=== PATIENT | male | born 1985 | race Caucasian/White ===

== ENCOUNTER 2017-09-18 07:09 | Inpatient (IN) ==
[2017-09-18] MEDS ORDERED: Acetylcysteine 20% Oral Liq 6,000 MG/30 ML Vial PO ONE (08:06)
--- NOTE | 2017-09-18 08:12 | ED ---
HPI General Chief Complaint: Overdose Stated Complaint: Poss overdose Time Seen by Provider: 09/18/17 07:56 History of Present Illness HPI Narrative: This patient has been feeling depressed and suicidal primarily over a relationship breakup. Last night in an intentional overdose took 30 500 mg Tylenol at midnight. He denies illicit drug use or alcohol or any other pill ingestion. He presents here voluntarily seeking help. His only physical complaint is nausea at this time. Denies abdominal pain or fever. Symptom severity is moderate. No alleviating factors. No exacerbating factors. Duration is 8 hours Related Data Home Medications Medication Instructions Recorded Confirmed No Known Home Medications 09/18/17 09/18/17 Allergies Allergy/AdvReac Type Severity Reaction Status Date / Time No Known Allergies Allergy Unverified 09/18/17 07:12 Review of Systems Except as stated in HPI: all other systems reviewed are negative PMFSH Social History Social History Substance History: No History of Abuse Second Hand Smoke Exposure: No Smoking Status: Never smoker How Often Do You Have a Drink Containing Alcohol: Monthly or less Recent Travel in [facility] within the Last 8 Weeks: No Recent Out of Country Travel within the Last 8 Weeks: No Immunization History Tetanus Immunization: Unsure Hx Influenza Vaccine This Season: No Exam Narrative Exam Narrative: GENERAL: Well-nourished, well-developed patient in no apparent distress. SKIN: Focused skin assessment reveals no rash and nodules. Skin is Warm and dry. HEAD: Atraumatic. Normocephalic. EYES: Pupils equal and round. No scleral icterus. No injection or drainage. ENT: No nasal bleeding or discharge. Mucous membranes pink and moist. NECK: Trachea midline. No JVD. CARDIOVASCULAR: Regular rate and rhythm. No murmur appreciated. RESPIRATORY: No accessory muscle use. Clear to auscultation. Breath sounds equal bilaterally. GASTROINTESTINAL: Abdomen soft, non-tender, nondistended. Hepatic and splenic margins not palpable. MUSCULOSKELETAL: No obvious deformities. No clubbing. No cyanosis. No edema. NEUROLOGICAL: Awake and alert. No obvious cranial nerve deficits. Motor grossly within normal limits. Normal speech. PSYCHIATRIC: Depressed mood and flat affect; insight and judgment poor . Course Initial Documented Vital Signs Temperature 97.8 F 09/18/17 07:12 Pulse Rate 77 09/18/17 07:12 Respiratory Rate 16 09/18/17 07:12 Blood Pressure 138/79 09/18/17 07:12 Last Documented Vital Signs Temperature 97.8 F 09/18/17 07:12 Pulse Rate 87 09/18/17 08:14 Respiratory Rate 18 09/18/17 08:14 Blood Pressure 121/76 09/18/17 08:14 Pulse Oximetry 99 09/18/17 08:14 Medical Decision Making MDM Narrative Medical decision making narrative: IV placed and labs sent The nurse spoke with poison control who recommended an immediate dose of Mucomyst, even before lab studies are complete given the amount that he took. I gave him a oral loading dose. Zofran given as well. I ordered psychiatric evaluation and he is agreeable. CBC is normal. Metabolic studies reasonably normal. His Tylenol level is 94. Plotted on the graft at the 8 hour vince he meets criteria for the full treatment of Acetadote. I gave him the first as an oral load. He is now nauseous so I am instituting IV treatment per protocol. I have reviewed with medical residents who will admit. He will get psychiatric consultation as an inpatient. Differential Diagnosis Differential Diagnosis: Overdose, suicidal ideation, adjustment disorder Medical Records Medical records reviewed: Yes I reviewed the patient's medical records. Lab Data Result diagrams: 09/18/17 08:00 09/18/17 08:00 Lab Results 09/18/17 09/18/17 09/18/17 Range/Units 08:00 08:00 08:00 WBC 10.6 (4.0-11.0) th/mm3 RBC 5.08 (4.50-5.90) mil/mm3 Hgb 15.0 (13.0-17.0) gm/dL Hct 43.7 (39.0-51.0) % MCV 86.0 (80.0-100.0) fL MCH 29.5 (27.0-34.0) pg MCHC 34.3 (32.0-36.0) % RDW 13.8 (11.6-17.2) % Plt Count 251 (150-450) th/mm3 MPV 8.1 (7.0-11.0) fL Neut % (Auto) 87.5 H (16.0-70.0) % Lymph % (Auto) 8.4 L (9.0-44.0) % [place] % (Auto) 3.9 (0.0-8.0) % Eos % (Auto) 0.0 (0.0-4.0) % Baso % (Auto) 0.2 (0.0-2.0) % Neut # (Auto) 9.3 H (1.8-7.7) th/mm3 Lymph # (Auto) 0.9 L (1.0-4.8) th/mm3 [place] # (Auto) 0.4 (0.0-0.9) th/mm3 Eos # (Auto) 0.0 (0.0-0.4) th/mm3 Baso # (Auto) 0.0 (0.0-0.2) th/mm3 WBC Differential . Differential Comment Auto diff final Sodium 138 (136-145) meq/L Potassium 3.4 L (3.5-5.1) meq/L Chloride 104 (98-107) meq/L Carbon Dioxide 25.3 (21.0-32.0) meq/L Anion Gap 9 (5-15) meq/L BUN 10 (7-18) mg/dL Creatinine 0.98 (0.60-1.30) mg/dL Estimated GFR Greater than 89 (>89) mL/min Random Glucose 125 H (74-106) mg/dL Calcium 9.1 (8.5-10.1) mg/dL Total Bilirubin 0.4 (0.2-1.0) mg/dL AST 10 L (15-37) U/L ALT 15 (12-78) U/L Alkaline Phosphatase 54 (45-117) U/L Total Protein 8.6 H (6.4-8.2) g/dL Albumin 4.4 (3.4-5.0) g/dL Salicylates Less than 1.7 L (2.8-20.0) mg/dL Urine Opiates Screen (Neg) Acetaminophen 94.1 H (10.0-30.0) mcg/mL Ur Barbiturates Screen (Neg) Ur Amphetamines Screen (Neg) U Benzodiazepines Scrn (Neg) Urine Cocaine Screen (Neg) U Cannabinoids Screen (Neg) Serum Alcohol Less than 3 (0-5) mg/dL 09/18/17 Range/Units 08:45 WBC (4.0-11.0) th/mm3 RBC (4.50-5.90) mil/mm3 Hgb (13.0-17.0) gm/dL Hct (39.0-51.0) % MCV (80.0-100.0) fL MCH (27.0-34.0) pg MCHC (32.0-36.0) % RDW (11.6-17.2) % Plt Count (150-450) th/mm3 MPV (7.0-11.0) fL Neut % (Auto) (16.0-70.0) % Lymph % (Auto) (9.0-44.0) % [place] % (Auto) (0.0-8.0) % Eos % (Auto) (0.0-4.0) % Baso % (Auto) (0.0-2.0) % Neut # (Auto) (1.8-7.7) th/mm3 Lymph # (Auto) (1.0-4.8) th/mm3 [place] # (Auto) (0.0-0.9) th/mm3 Eos # (Auto) (0.0-0.4) th/mm3 Baso # (Auto) (0.0-0.2) th/mm3 WBC Differential Differential Comment Sodium (136-145) meq/L Potassium (3.5-5.1) meq/L Chloride (98-107) meq/L Carbon Dioxide (21.0-32.0) meq/L Anion Gap (5-15) meq/L BUN (7-18) mg/dL Creatinine (0.60-1.30) mg/dL Estimated GFR (>89) mL/min Random Glucose (74-106) mg/dL Calcium (8.5-10.1) mg/dL Total Bilirubin (0.2-1.0) mg/dL AST (15-37) U/L ALT (12-78) U/L Alkaline Phosphatase (45-117) U/L Total Protein (6.4-8.2) g/dL Albumin (3.4-5.0) g/dL Salicylates (2.8-20.0) mg/dL Urine Opiates Screen Neg (Neg) Acetaminophen (10.0-30.0) mcg/mL Ur Barbiturates Screen Neg (Neg) Ur Amphetamines Screen Neg (Neg) U Benzodiazepines Scrn Neg (Neg) Urine Cocaine Screen Neg (Neg) U Cannabinoids Screen Neg (Neg) Serum Alcohol (0-5) mg/dL Discharge Plan Discharge Disposition Patient Disposition: 32 Still Patient Discharge Details Diagnosis: Acetaminophen overdose Physicians Team ED Provider: Desean Zaidi Primary Care Provider: Primary Care Kailee Sanders Rxs /Orders / Referrals /Forms Prescriptions: No Action No Known Home Medications RF: 0 Discharge Interventions Interventions: Vital Signs Last Done: 09/18/17 08:14 Status ED Status: With Doctor
[2017-09-18 08:36] LABS: Baso % (Auto) 0.2 % (0.0-2.0); Hematocrit 43.7 % (39.0-51.0); Lymph # (Auto) 0.9 th/mm3 (1.0-4.8); Lymph % (Auto) 8.4 % (9.0-44.0); Mean Corpuscular HGB Conc 34.3 % (32.0-36.0); Mean Corpuscular Hemoglobin 29.5 pg (27.0-34.0); Mean Platelet Volume 8.1 fL (7.0-11.0); Mono # (Auto) 0.4 th/mm3 (0.0-0.9); Mono % (Auto) 3.9 % (0.0-8.0); Neut # (Auto) 9.3 th/mm3 (1.8-7.7); Neut % (Auto) 87.5 % (16.0-70.0); Platelet Count 251 th/mm3 (150-450); Red Blood Count 5.08 mil/mm3 (4.50-5.90); Red Cell Distribution Width 13.8 % (11.6-17.2); White Blood Count 10.6 th/mm3 (4.0-11.0)
[2017-09-18 08:56] LABS: Albumin 4.4 g/dL (3.4-5.0); Anion Gap 9 meq/L (5-15); Aspartate Aminotransferase 10 U/L (15-37); Blood Urea Nitrogen 10 mg/dL (7-18); Calcium 9.1 mg/dL (8.5-10.1); Carbon Dioxide 25.3 meq/L (21.0-32.0); Chloride 104 meq/L (98-107); Glomerular Filtration Rate Greater Than 89 mL/min (>89); Glucose,Random 125 mg/dL (74-106); Potassium 3.4 meq/L (3.5-5.1); Sodium 138 meq/L (136-145)
[2017-09-18 08:59] LABS: Acetaminophen 94.1 mcg/mL (10.0-30.0); Alanine Aminotransferase 15 U/L (12-78); Alkaline Phosphatase 54 U/L (45-117); Total Protein 8.6 g/dL (6.4-8.2)
[2017-09-18 09:22] LABS: Amphetamine Screen,Urine Neg (Neg); Barbiturate Screen,Urine Neg (Neg); Cannabinoid Screen,Urine Neg (Neg); Cocaine Screen,Urine Neg (Neg)
[2017-09-18 09:24] LABS: Opiate Screen,Urine Neg (Neg)
[2017-09-18] MEDS ORDERED: WATER IV.SIG ONE ×8 (11:22→12:58)
[2017-09-18] MEDS ORDERED: ACETYLCYSTEINE IV.SIG ONE ×8 (11:22→12:58)
[2017-09-18] MEDS ORDERED: DEXTROSE 5% IV.SIG ONE ×8 (11:22→12:58)
--- NOTE | 2017-09-18 12:31 | P.HPFP ---
History of Present Illness Primary Care Physician: No Primary Care Physician History of Present Illness: 32 y/o M, previously healthy with no medical history, took 30 500mg pills at 12: 00AM, attempting suicide. Hx of suicidal ideations but this is his first attempt. He recently had a bad break up and had a bad series events following that. His cat and engagement was broken up on the same day. He has also had to try to get his son taken care of. His ex now has a new BF and this has really upset him. These events occurred 1 month ago and there has been ongoing pain since then. He expects that he would never try something like this again and it was a moment of weakness. He tried drinking salt water to induce vomiting and tried to puke up some of the tylenol. He did vomit 5x at home - clear/green normal vomit color. He got medication in the ED and vomited 1 hr later. He is not currently nauseas. Denies CP/SOB/dizzyness. - Diagnosis (1) Tylenol overdose (2) Suicide attempt (3) Disorders of fluid, electrolyte, and acid-base balance (4) DVT prophylaxis Review of Systems Constitutional: Denies anorexia, Denies body ache(s) Eyes: Denies blurry vision, Denies bulging eyes Cardiovascular: Denies chest pain, Denies chest pain at rest Respiratory: Denies change in phlegm color, Denies pain on inspiration Gastrointestinal: Denies abdominal pain, Denies bright, red blood in stools Genitourinary: Denies difficulty with ejaculations, Denies erectile dysfunction Musculoskeletal: Denies abnormal walking, Denies joint pain Skin/Breast: Denies bleeding lesions Neurologic: Denies abnormal hearing Psychiatric: Denies abnormal sleep pattern Endocrine: Denies cold intolerance PMFSH - History History Provided By: Patient - Medical History Medical History: Medical History (Last Updated 09/18/17 @ 17:09 by Fina Sanchez MD, R2) Asthma - Tobacco History Second Hand Smoke Exposure: No Tobacco Use In Past 30 Days: No Smoking Status: Never smoker - Alcohol History How Often Do You Have a Drink Containing Alcohol: Monthly or less - Substance Use History Substance History: No History of Abuse - Travel History History of Recent Travel: No Recent Travel in the [place] Within the Last 8 Weeks: No Recent Travel Out of the Country Within the Last 8 Weeks: No - Immunization History Tetanus Immunization: Unsure Hx Influenza Vaccine This Season: No Medications and Allergies Active Medications: Active Medications Miscellaneous Medication ([facility] [place] [facility] Information) 0 each OTHER ONCE ONE Stop: 09/18/17 13:01 Allergies Allergy/AdvReac Type Severity Reaction Status Date / Time No Known Allergies Allergy Unverified 09/18/17 07:12 Home Medications Medication Instructions Recorded Confirmed Type No Known Home Medications 09/18/17 09/18/17 History Exam Vital signs: Vital Signs 09/18/17 07:12 09/18/17 07:14 09/18/17 08:14 Temperature 97.8 F Pulse Rate 77 79 87 Respiratory Rate 16 16 18 Blood Pressure 138/79 130/82 121/76 Pulse Oximetry 100 99 Intake & Output 09/17/17 09/18/17 09/18/17 18:59 06:59 18:59 Weight 65.771 kg - Constitutional no acute distress - Routine Respiratory Exam Present: CTA bilaterally. Absent: accessory muscle use, decreased breath sounds , respiratory distress - Routine Cardiovascular Exam Present: RRR, S1, S2 - Routine Abdominal Exam Present: soft, normoactive bowel sounds. Absent: tenderness - Routine Extremities Exam Absent: cyanosis, clubbing, edema - Routine Neurological Exam Present: alert, oriented X3 Results - Labs Result diagrams: 09/18/17 08:00 09/18/17 08:00 Abnormal lab results 09/18/17 09/18/17 09/18/17 Range/Units 08:00 08:00 08:00 Neut % (Auto) 87.5 H (16.0-70.0) % Lymph % (Auto) 8.4 L (9.0-44.0) % Neut # (Auto) 9.3 H (1.8-7.7) th/mm3 Lymph # (Auto) 0.9 L (1.0-4.8) th/mm3 Potassium 3.4 L (3.5-5.1) meq/L Random Glucose 125 H (74-106) mg/dL AST 10 L (15-37) U/L Total Protein 8.6 H (6.4-8.2) g/dL Salicylates Less than 1.7 L (2.8-20.0) mg/dL Acetaminophen 94.1 H (10.0-30.0) mcg/mL Short CBC 09/18/17 Range/Units 08:00 WBC 10.6 (4.0-11.0) th/mm3 Hgb 15.0 (13.0-17.0) gm/dL Hct 43.7 (39.0-51.0) % Plt Count 251 (150-450) th/mm3 BMP 09/18/17 08:00 Sodium 138 Potassium 3.4 L Chloride 104 Carbon Dioxide 25.3 BUN 10 Creatinine 0.98 Calcium 9.1 Liver Function 09/18/17 Range/Units 08:00 Total Bilirubin 0.4 (0.2-1.0) mg/dL AST 10 L (15-37) U/L ALT 15 (12-78) U/L Alkaline Phosphatase 54 (45-117) U/L Albumin 4.4 (3.4-5.0) g/dL Caprini VTE Risk Assessment Caprini VTE Risk Assessment: No/Low Risk (score <= 1) Caprini Risk Assessment Model: Point Value = 1 Point Value = 2 Point Value = 3 Point Value = 5 Age 41-60 Minor surgery BMI > 25 kg/m2 Swollen legs Varicose veins or History of unexplained or recurrent spontaneous Oral contraceptives or hormone replacement Sepsis (< 1 month) Serious lung disease, including pneumonia (< 1 month) Abnormal pulmonary function Acute myocardial infarction Congestive heart failure (< 1 month) History of inflammatory bowel disease Medical patient at bed rest Age 61-74 Arthroscopic surgery Major open surgery (> 45 min) Laparoscopic surgery (> 45 min) Malignancy Confined to bed (> 72 hours) Immobilizing plaster cast Central venous access Age >= 75 History of VTE Family history of VTE Factor V Leiden Prothrombin [id number] Lupus anticoagulant Anticardiolipin antibodies Elevated serum homocysteine Heparin-induced thrombocytopenia Other congenital or acquired thrombophilia Stroke (< 1 month) Elective arthroplasty Hip, pelvis, or leg fracture Acute spinal cord injury (< 1 month) Prophylaxis Regimen: Total Risk Factor Score Risk Level Prophylaxis Regimen 0-1 Low Early ambulation 2 Moderate Order ONE of the following: *Sequential Compression Device (SCD) *Heparin 5000 units SQ BID 3-4 Higher Order ONE of the following medications: *Heparin 5000 units SQ TID *Enoxaparin/Lovenox 40 mg SQ daily (WT < 150 kg, CrCl > 30 mL/min) *Enoxaparin/Lovenox 30 mg SQ daily (WT < 150 kg, CrCl > 10-29 mL/min) *Enoxaparin/Lovenox 30 mg SQ BID (WT < 150 kg, CrCl > 30 mL/min) AND/OR *Sequential Compression Device (SCD) 5 or more Highest Order ONE of the following medications: *Heparin 5000 units SQ TID (Preferred with Epidurals) *Enoxaparin/Lovenox 40 mg SQ daily (WT < 150 kg, CrCl > 30 mL/min) *Enoxaparin/Lovenox 30 mg SQ daily (WT < 150 kg, CrCl > 10-29 mL/min) *Enoxaparin/Lovenox 30 mg SQ BID (WT < 150 kg, CrCl > 30 mL/min) AND *Sequential Compression Device (SCD) Assessment and Plan - Assessment (1) Tylenol overdose Code(s): T39.1X1A - Poisoning by 4-Aminophenol derivatives, accidental ( unintentional), initial encounter Status: Acute Plan: Continue to follow acetaminophen overdose protocol Status post acetylcysteine oral 9200 mg p.o. 1, with vomiting of medication afterwards s/p N-acetylcysteine 9900 mg infusion 1 hour -first dose Continue protocol per pharmacy, start 16 hour dose Expect 300 mg/kg over 24 hours, via 20 hour protocol Follow-up vital signs (2) Suicide attempt Code(s): T14.91XA - Suicide attempt, initial encounter Status: Acute Plan: No current suicidal ideations, patient is here voluntarily Follow-up with psychiatry consult (3) Disorders of fluid, electrolyte, and acid-base balance Code(s): E87.8 - Other disorders of electrolyte and fluid balance, not elsewhere classified Status: Acute Plan: Fluids: IV fluids at maintenance, encourage p.o. fluids as tolerated Electrolytes: BMP normal, follow-up and replete as needed Nutrition: Regular diet as tolerated (4) DVT prophylaxis Status: Acute Plan: Lovenox 40 subcu daily - Assessment and Plan 32-year-old male, no previous past medical history, presents status post attempted suicide Via Tylenol overdose. Discharge Planning: Discharge pending clinical improvement, completion of acetylcysteine protocol
[2017-09-18] MEDS ORDERED: Bisacodyl 10 MG Supp RECTAL PRN (12:53)
[2017-09-18] MEDS ORDERED: [UNRECOGNIZED DRUG - REMARK] OTHER ONE (13:00)
[2017-09-18] MEDS: Sod Chloride 0.9% Inj 1,000 ML IV.CONT SCH (15:18)
[2017-09-18] MEDS: Enoxaparin Inj 40 MG/0.4 ML Syringe SQ SCH (15:18)
[2017-09-18] MEDS ORDERED: Zolpidem Tartrate 5 MG Tablet PO PRN (21:00)
--- NOTE | 2017-09-18 21:38 | ECG ---
Date Performed: 09/18/2017 Time Performed: 10:41:26 PTAGE: 32 years EKG: Sinus rhythm WITH SINUS ARRHYTHMIA POSSIBLE RIGHT VENTRICULAR CONDUCTION DELAY BORDERLINE ECG NO PREVIOUS TRACING DOCTOR: Kyrie Conde Interpretating Date/Time 09/18/2017 21:36:32
[2017-09-19] MEDS: Sod Chloride 0.9% Inj 1,000 ML IV.CONT SCH ×3 (06:20→20:08)
[2017-09-19 07:27] LABS: Baso % (Auto) 0.4 % (0.0-2.0); Eos # (Auto) 0.2 th/mm3 (0.0-0.4); Eos % (Auto) 2.6 % (0.0-4.0); Hematocrit 39.6 % (39.0-51.0); Hemoglobin 13.8 gm/dL (13.0-17.0); Lymph # (Auto) 1.8 th/mm3 (1.0-4.8); Lymph % (Auto) 30.2 % (9.0-44.0); Mean Corpuscular HGB Conc 34.8 % (32.0-36.0); Mean Corpuscular Hemoglobin 30.1 pg (27.0-34.0); Mean Corpuscular Volume 86.4 fL (80.0-100.0); Mean Platelet Volume 8.1 fL (7.0-11.0); Mono # (Auto) 0.7 th/mm3 (0.0-0.9); Mono % (Auto) 11.8 % (0.0-8.0); Neut # (Auto) 3.2 th/mm3 (1.8-7.7); Platelet Count 236 th/mm3 (150-450); Red Blood Count 4.59 mil/mm3 (4.50-5.90); Red Cell Distribution Width 14.1 % (11.6-17.2); White Blood Count 5.9 th/mm3 (4.0-11.0)
[2017-09-19 08:32] LABS: Albumin 3.5 g/dL (3.4-5.0); Anion Gap 7 meq/L (5-15); Aspartate Aminotransferase 6 U/L (15-37); Blood Urea Nitrogen 8 mg/dL (7-18); Calcium 8.6 mg/dL (8.5-10.1); Carbon Dioxide 27.4 meq/L (21.0-32.0); Chloride 108 meq/L (98-107); Glomerular Filtration Rate Greater Than 89 mL/min (>89); Glucose,Random 82 mg/dL (74-106); Potassium 3.9 meq/L (3.5-5.1); Sodium 142 meq/L (136-145)
[2017-09-19 08:34] LABS: Alanine Aminotransferase 15 U/L (12-78)
[2017-09-19 08:36] LABS: Alkaline Phosphatase 44 U/L (45-117)
--- NOTE | 2017-09-19 11:50 | P.PNFP ---
Subjective Interval history: Patient seen and examined bedside this morning. Patient denies any nausea or vomiting overnight. He has been eating and drinking without difficulty. He has been with the sitters overnight and there of the been no complications. No abdominal pain. No fever/chills. He feels comfortable with going home today and he feels that he is a safe plan for discharge. <Fina Sanchez - 09/19/17 11:49> Results - Labs Result diagrams: 09/19/17 06:35 09/19/17 06:35 <Jaspal Bentley - 09/20/17 08:25> Abnormal lab results 09/19/17 Range/Units 06:35 Chloride 108 H (98-107) meq/L AST 6 L (15-37) U/L Alkaline Phosphatase 44 L (45-117) U/L Acetaminophen Less than 2.0 L (10.0-30.0) mcg/mL [facility] 09/19/17 06:35 Sodium 142 Potassium 3.9 Chloride 108 H Carbon Dioxide 27.4 BUN 8 Creatinine 0.80 Calcium 8.6 Liver Function 09/19/17 Range/Units 06:35 Total Bilirubin 0.3 (0.2-1.0) mg/dL AST 6 L (15-37) U/L ALT 15 (12-78) U/L Alkaline Phosphatase 44 L (45-117) U/L Albumin 3.5 D (3.4-5.0) g/dL <Jaspal Bentley - 09/20/17 08:25> Abnormal lab results 09/19/17 09/19/17 Range/Units 06:35 06:35 [place] % (Auto) 11.8 H (0.0-8.0) % Chloride 108 H (98-107) meq/L AST 6 L (15-37) U/L Alkaline Phosphatase 44 L (45-117) U/L Acetaminophen Less than 2.0 L (10.0-30.0) mcg/mL Short CBC 09/19/17 Range/Units 06:35 WBC 5.9 (4.0-11.0) th/mm3 Hgb 13.8 (13.0-17.0) gm/dL Hct 39.6 (39.0-51.0) % Plt Count 236 (150-450) th/mm3 [facility] 09/19/17 06:35 Sodium 142 Potassium 3.9 Chloride 108 H Carbon Dioxide 27.4 BUN 8 Creatinine 0.80 Calcium 8.6 Liver Function 09/19/17 Range/Units 06:35 Total Bilirubin 0.3 (0.2-1.0) mg/dL AST 6 L (15-37) U/L ALT 15 (12-78) U/L Alkaline Phosphatase 44 L (45-117) U/L Albumin 3.5 D (3.4-5.0) g/dL <Fina Sanchez - 09/19/17 11:49> Physical Exam Vital signs: Vital Signs 09/19/17 12:00 09/19/17 20:00 09/20/17 00:00 Temperature 98.4 F 98 F Pulse Rate 76 87 84 Respiratory Rate 16 20 20 Blood Pressure 125/73 125/85 133/76 Pulse Oximetry 98 98 97 09/20/17 00:05 09/20/17 04:00 Temperature 97.6 F Pulse Rate 62 59 L Respiratory Rate 20 Blood Pressure 129/76 Pulse Oximetry 97 Intake & Output 09/19/17 09/20/17 09/20/17 18:59 06:59 18:59 Intake Total 1000 / 1000 2646 / 2646 Balance 1000 / 1000 2646 / 2646 Weight 65.77 kg Intake: IV 1000 / 1000 1965 NS Inj 1,000 ML @ 100 mls/hr IV 1000 / 1000 1965 .CONT .Q10H [facility] Rx#:[id number] Oral 680 / 680 Other: # Voids 4 Date of Last Bowel Movement 09/17/17 <Jaspal Bentley - 09/20/17 08:25> Vital Signs 09/18/17 12:59 09/18/17 13:00 09/18/17 15:17 Temperature Pulse Rate 65 65 63 Respiratory Rate 16 16 18 Blood Pressure 127/71 127/71 125/80 Pulse Oximetry 98 99 99 09/18/17 16:00 09/18/17 19:20 09/18/17 23:23 Temperature 99.1 F 98.6 F Pulse Rate 69 81 Respiratory Rate 16 18 17 Blood Pressure 133/76 139/86 Pulse Oximetry 98 98 09/18/17 23:54 09/19/17 00:02 09/19/17 03:25 Temperature 97.8 F 97.5 F L Pulse Rate 74 79 65 Respiratory Rate 18 18 Blood Pressure 141/66 H 127/69 Pulse Oximetry 98 97 09/19/17 04:00 09/19/17 04:03 09/19/17 07:45 Temperature Pulse Rate 62 Respiratory Rate 17 Blood Pressure Pulse Oximetry 98 09/19/17 08:00 Temperature Pulse Rate 77 Respiratory Rate Blood Pressure Pulse Oximetry Intake & Output 09/18/17 09/19/17 09/19/17 18:59 06:59 18:59 Intake Total 516.5 / 516.5 1360 / 1360 1000 / 1000 Balance 516.5 / 516.5 1360 / 1360 1000 / 1000 Weight 65.77 kg 65.77 kg Intake: IV 516.5 / 516.5 1000 / 1000 1000 / 1000 NS Inj 1,000 ML @ 100 mls/hr IV 1000 / 1000 1000 / 1000 .CONT .Q10H [facility] Rx#:[id number] Oral 360 / 360 Other: # Voids 3 Date of Last Bowel Movement 09/17/17 # Bowel Movements 0 Weight On Admission 65.77 kg <[facility] 09/19/17 11:49> - Constitutional no acute distress <[facility] 09/19/17 11:49> - Routine Respiratory Exam Present: CTA bilaterally. Absent: accessory muscle use, decreased breath sounds , prolonged expiratory phase <[facility] 09/19/17 11:49> - Routine Cardiovascular Exam Present: RRR, S1, S2. Absent: murmur <[facility] 09/19/17 11:49> - Routine Abdominal Exam Present: soft, normoactive bowel sounds. Absent: tenderness <[facility] 09/19/17 11:49> - Routine Skin Exam Present: intact <[facility] 09/19/17 11:49> - Routine Neurological Exam Present: alert, oriented X3 <[facility] 09/19/17 11:49> Assessment and Plan - Assessment (1) Tylenol overdose Code(s): T39.1X1A - Poisoning by 4-Aminophenol derivatives, accidental ( unintentional), initial encounter Status: Acute (2) Suicide attempt Code(s): T14.91XA - Suicide attempt, initial encounter Status: Acute (3) Disorders of fluid, electrolyte, and acid-base balance Code(s): E87.8 - Other disorders of electrolyte and fluid balance, not elsewhere classified Status: Acute (4) DVT prophylaxis Status: Acute <Jaspal Bentley - 09/20/17 08:25> (1) Tylenol overdose Code(s): T39.1X1A - Poisoning by 4-Aminophenol derivatives, accidental ( unintentional), initial encounter Status: Acute Plan: Acetaminophen level on admission 94.1, improved to less than 2.0 this morning Status post 20-hour acetylcysteine protocol Vital signs stable No signs of complications, LFTs normal (2) Suicide attempt Code(s): T14.91XA - Suicide attempt, initial encounter Status: Acute Plan: No current suicidal ideations, patient is here voluntarily Follow-up with psychiatry consult; per psychiatry with suicide attempt patient requires admission to [facility] for monitoring, will transfer to [facility] (3) Disorders of fluid, electrolyte, and acid-base balance Code(s): E87.8 - Other disorders of electrolyte and fluid balance, not elsewhere classified Status: Acute Plan: Fluids: Regular p.o. diet Electrolytes: BMP normal, follow-up and replete as needed Nutrition: Regular diet as tolerated (4) DVT prophylaxis Status: Acute Plan: Lovenox 40 subcu daily <Fina Sanchez - 09/19/17 11:56> - Assessment and Plan 32-year-old male, no previous past medical history, presents status post attempted suicide Via Tylenol overdose. <Fina Sanchez - 09/19/17 12:01> Discharge Planning: Discussed with psychiatry consult, will discharge and transfer to [facility] unit for monitoring and evaluation <Fina Sanchez 09/19/17 12:01> - Attending Attestation The exam, history, and the medical decision-making described in the above note were completed with the assistance of the resident physician. I reviewed and agree with the findings presented. I attest that I had a [id number] encounter with the patient on the same day, and personally performed and documented my assessment and findings in the medical record. Yolanda CALDERA <Jaspal Bentley - 09/20/17 08:25>
[2017-09-19] MEDS: Enoxaparin Inj 40 MG/0.4 ML Syringe SQ SCH (14:38)
--- NOTE | 2017-09-19 15:31 | P.CONPSY ---
Provisional Diagnosis Admission Date: September 18, 2017 12:57 [place] I.: Adjustment disorder with depressed mood vs major depressive disorder, single episode, severe, without psychosis History of Present Illness Service: Medicine Primary Care Provider: No Primary Care Physician History of Present Illness: The patient is a 32 year-old man, domiciled in the [place] his fiance, he has a 4 years old son, employed, without no previous psychiatric history, no previous suicidal attempts, no previous psychiatric hospitalizations, he denies the use of illegal drugs and alcohol, no significant medical history, brought to the hospital after overdosing with suicidal intentions with 30 500mg pills at 12:00A yesterday. The patient was seen today for psychiatric consult in the medical floor. EMR reviewed. The patient is calm, cooperative, but very tearful and depressed. Hx of suicidal ideations but this is his first attempt. He recently had a bad break up and had a bad series events following that. His cat and engagement was broken up on the same day. He has also had to try to get his son taken care of. His ex now has a new BF and this has really upset him. These events occurred 1 month ago and there has been ongoing pain since then. He expects that he would never try something like this again and it was a moment of weakness. He reports that added to this problem with his girlfriend, he also has been facing economical problems, and stress with his bills, and he has been quite pessimistic, hopeless, helpless, worthless, having continuous suicidal ideation, finally led to a suicidal attempt. At this moment the patient was able to contract for safety in the hospital. He continues to have suicidal thoughts, but he says that he is regretful of his action and he does not want to . Patient is oriented 3, no attention deficit, no filtration of consciousness. During my evaluation I could not elicit any delusions, paranoia, loosening of associations, ideas of reference, agitation or aggressive behavior. The patient denies history of illegal drugs or alcohol. Past psychiatric history: No previous psychiatric history. No hospitalizations. No suicide attempts Past medical: No medical history Family psychiatric history: Patient denies previous family psychiatric he Substance history: The patient denies the use of illegal drugs or alcohol Social history: The patient was born and raised in [place], he lives with his fiance in [facility], he has a 4 years old son, is employed as a banking center manager in a warehouse, his highest level of education is high school. [facility] - History History Provided By: Patient - Medical History Medical History: Medical History (Last Updated 09/18/17 @ 17:09 by Fina Sanchez MD, R2) Asthma - Tobacco History Second Hand Smoke Exposure: No Tobacco Use In Past 30 Days: No Smoking Status: Never smoker - Alcohol History How Often Do You Have a Drink Containing Alcohol: Monthly or less - Substance Use History Substance History: No History of Abuse - Travel History History of Recent Travel: No Recent Travel in the [place] Within the Last 8 Weeks: No Recent Travel Out of the Country Within the Last 8 Weeks: No - Immunization History Tetanus Immunization: Unsure Hx Influenza Vaccine This Season: No Medications and Allergies Active Medications: Active Medications Al Hydroxide/Mg Hydroxide (Milk Of Magnesia Liq) 30 ml PO Q12H PRN PRN Reason: Mild Constipation Bisacodyl (Dulcolax Supp) 10 mg RECTAL DAILY PRN PRN Reason: SEVERE CONSITIPATION Bupropion HCl (Wellbutrin) 75 mg PO BID [facility] Enoxaparin Sodium (Lovenox Inj) 40 mg SQ Q24H [facility] Last Admin: 09/19/17 14:38 Dose: Not Given Sodium Chloride (Ns Inj) 1,000 mls @ 100 mls/hr IV.CONT .Q10H [facility] Last Admin: 09/19/17 10:45 Dose: 100 mls/hr Lactulose (Lactulose Liq) 30 ml PO DAILY PRN PRN Reason: SEVERE CONSITIPATION Ondansetron HCl (Zofran Inj) 4 mg IV.PUSH Q6H PRN PRN Reason: NAUSEA OR VOMITING Sennosides (Senokot) 17.2 mg PO Q12H PRN PRN Reason: Moderate Constipation Zolpidem Tartrate (Ambien) 5 mg PO HS PRN PRN Reason: INSOMNIA Allergies Allergy/AdvReac Type Severity Reaction Status Date / Time No Known Allergies Allergy Unverified 09/18/17 07:12 Home Medications Medication Instructions Recorded Confirmed Type No Known Home Medications 09/18/17 09/18/17 History Exam Vital signs: Vital Signs 09/18/17 16:00 09/18/17 19:20 09/18/17 23:23 Temperature 99.1 F 98.6 F Pulse Rate 69 81 Respiratory Rate 16 18 17 Blood Pressure 133/76 139/86 Pulse Oximetry 98 98 09/18/17 23:54 09/19/17 00:02 09/19/17 03:25 Temperature 97.8 F 97.5 F L Pulse Rate 74 79 65 Respiratory Rate 18 18 Blood Pressure 141/66 H 127/69 Pulse Oximetry 98 97 09/19/17 04:00 09/19/17 04:03 09/19/17 07:45 Temperature Pulse Rate 62 Respiratory Rate 17 Blood Pressure Pulse Oximetry 98 09/19/17 08:00 Temperature 98 F Pulse Rate 76 Respiratory Rate 18 Blood Pressure 111/62 Pulse Oximetry 99 Intake & Output 09/18/17 09/19/17 09/19/17 18:59 06:59 18:59 Intake Total 516.5 / 516.5 1360 / 1360 1000 / 1000 Balance 516.5 / 516.5 1360 / 1360 1000 / 1000 Weight 65.77 kg 65.77 kg Intake: IV 516.5 / 516.5 1000 / 1000 1000 / 1000 NS Inj 1,000 ML @ 100 mls/hr IV 1000 / 1000 1000 / 1000 .CONT .Q10H [facility] Rx#:[id number] Oral 360 / 360 Other: # Voids 3 Date of Last Bowel Movement 09/17/17 # Bowel Movements 0 Weight On Admission 65.77 kg Mental Status Examination Appearance: Appropriate Consciousness: Alert Orientation: x4 Speech: Unremarkable Language: Adequate Fund of Knowledge: Adequate Attention and Concentration: Adequate Mood: Sad Affect: Sad Thought Process & Associations: Intact Thought Content: Appropriate Hallucination Type: None Delusion Type: None Suicidal Ideation: Yes Suicidal Plan: Yes Suicidal Intention: No Homicidal Ideation: No Homicidal Plan: No Homicidal Intention: No Insight: Poor Assessment and Plan - Assessment (1) Major depressive disorder Code(s): F32.9 - Major depressive disorder, single episode, unspecified Status : Acute - Plan Plan: Estimated LOS: [] days On psychiatric evaluation today the patient presents calm, cooperative, but very tearful, seems to be quite vulnerable and fragile. The patient reports that he has tried to overdose by overdosing with Tylenol after becoming aware that his girlfriend is cheating on him. He also report that he has been quite stressed at work and with economical situation. He reports that for the last 2 weeks he has been having persistent suicidal ideation, hopelessness, helplessness, catastrophic thinking, worthlessness and SI. At this moment the patient has an elevated risk of danger to self, he needs psychiatric hospitalization for stabilization. Patient can be transferred to psychiatry was medically stable. We will start Wellbutrin 75 mg twice daily for depression. Extensive supportive psychotherapy, psychoeducation and motivation provided. Continue 1:1 in the medical floor. I also will Garcia act the patient. Justification for Continued Inpatient Stay: The patient will be admitted in psychiatry (1) Major depressive disorder Qualifiers: Major depression recurrence: single episode Major depression episode severity : severe Psychotic features: without psychotic features
[2017-09-19] MEDS: buPROPion 75 MG Tablet PO SCH (20:08)
[2017-09-20] MEDS: Sod Chloride 0.9% Inj 1,000 ML IV.CONT SCH (04:54)
[2017-09-20 08:36] VITALS: BP 123/74; RESP 17; TEMP 97.7; O2SAT 98
[2017-09-20] MEDS: buPROPion 75 MG Tablet PO SCH (09:12)
[2017-09-20 09:35] VITALS: PULSE 78
--- NOTE | 2017-09-20 09:57 | P.PNFP ---
Subjective Interval history: Patient seen and examined bedside this morning. No acute events overnight. Patient feels comfortable with going to the psych unit. No fever/chills. No abdominal pain. No chest pain/shortness of breath/dizziness. Results - Labs Result diagrams: 09/19/17 06:35 09/19/17 06:35 Physical Exam Vital signs: Vital Signs 09/19/17 12:00 09/19/17 20:00 09/20/17 00:00 Temperature 98.4 F 98 F Pulse Rate 76 87 84 Respiratory Rate 16 20 20 Blood Pressure 125/73 125/85 133/76 Pulse Oximetry 98 98 97 09/20/17 00:05 09/20/17 04:00 09/20/17 08:00 Temperature 97.6 F 97.7 F Pulse Rate 62 59 L 78 Respiratory Rate 20 17 Blood Pressure 129/76 123/74 Pulse Oximetry 97 98 Intake & Output 09/19/17 09/20/17 09/20/17 18:59 06:59 18:59 Intake Total 1000 / 1000 2646 / 2646 Balance 1000 / 1000 2646 / 2646 Weight 65.77 kg Intake: IV 1000 / 1000 1965 NS Inj 1,000 ML @ 100 mls/hr IV 1000 / 1000 1965 .CONT .Q10H [facility] Rx#:[id number] Oral 680 / 680 Other: # Voids 4 Date of Last Bowel Movement 09/17/17 - Constitutional no acute distress - Routine Respiratory Exam Present: CTA bilaterally. Absent: accessory muscle use, decreased breath sounds , respiratory distress - Routine Cardiovascular Exam Present: RRR, S1, S2. Absent: murmur - Routine Abdominal Exam Present: soft, normoactive bowel sounds. Absent: tenderness - Routine Neurological Exam Present: alert, oriented X3 Assessment and Plan - Assessment (1) Tylenol overdose Code(s): T39.1X1A - Poisoning by 4-Aminophenol derivatives, accidental ( unintentional), initial encounter Status: Acute Plan: Acetaminophen level on admission 94.1, improved to less than 2.0 yesterday Status post 20-hour acetylcysteine protocol Vital signs stable No signs of complications, LFTs normal Patient is medically cleared for discharge to psych unit (2) Suicide attempt Code(s): T14.91XA - Suicide attempt, initial encounter Status: Acute Plan: No current suicidal ideations, patient is here voluntarily Follow-up with psychiatry consult; per psychiatry with suicide attempt patient requires admission to psych unit, continue medications as recommended by psychiatrist (3) Disorders of fluid, electrolyte, and acid-base balance Code(s): E87.8 - Other disorders of electrolyte and fluid balance, not elsewhere classified Status: Acute Plan: Fluids: Regular p.o. diet Electrolytes: BMP normal, follow-up and replete as needed Nutrition: Regular diet as tolerated (4) DVT prophylaxis Status: Acute Plan: Lovenox 40 subcu daily - Assessment and Plan 32-year-old male, no previous past medical history, presents status post attempted suicide Via Tylenol overdose. Discharge Planning: Patient is medically cleared for discharge to psych unit
--- NOTE | 2017-09-21 11:20 | P.DS ---
Date of admission: 09/18/17 12:57 Primary care physician: No Primary Care Physician Brief History from admission: 32 y/o M, previously healthy with no medical history, took 30 500mg pills at 12: 00AM, attempting suicide. Hx of suicidal ideations but this is his first attempt. He recently had a bad break up and had a bad series events following that. His cat and engagement was broken up on the same day. He has also had to try to get his son taken care of. His ex now has a new BF and this has really upset him. These events occurred 1 month ago and there has been ongoing pain since then. He expects that he would never try something like this again and it was a moment of weakness. He tried drinking salt water to induce vomiting and tried to puke up some of the tylenol. He did vomit 5x at home - clear/green normal vomit color. He got medication in the ED and vomited 1 hr later. He is not currently nauseas. Denies CP/SOB/dizzyness. DS: Summary Hospital Course: 32-year-old male, no previous past medical history, presented to the ED status post attempted suicide via Tylenol overdose. Acetaminophen level on admission was 94.1, was given 20 hour acetylcysteine protocol and patient improved to acetaminophen level of 2.0 in 1 day. LFTs normal. Psychiatry was consulted, and recommended admission to psychiatry unit due to suicide attempt. Patient was started on Wellbutrin per psychiatry for major depressive disorder, and was cotter acted. At that time he was medically stable, discharged from the medical floor and was transferred to psychiatry floor for further evaluation. - Time Spent with Patient Total time spent providing and/or coordinating discharge services: Less than 30 minutes - Quality: VTE Deep Vein Thrombosis/Pulmonary Embolism Present on Admission: No Results Procedures completed during hospitalization: None Discharge Plan - Discharge Disposition Patient Disposition: 65 Disc To Psych Care Facility - Discharge Condition Condition: Stable - Discharge Order Discharge Orders: Discharge Order (Routine); Ordered 09/19/17 Ordered By: Fina Sanchez - Physicians Team Primary Care Provider: Primary Care Marilyn,Kailee Attending Provider: Jaspal Betnley Other Providers: Jean Florentino MD
== END 2017-09-20 11:29 ==
LOC: NEPE 07:09 → NEDA 12:57 → N06 16:15
PROVIDERS: ADMIT Family Medicine; ATTEND Family Medicine

== ENCOUNTER 2017-09-20 11:16 | Inpatient (IN) ==
[2017-09-20] MEDS ORDERED: LORazepam 1 MG Tablet PO PRN (19:58)
[2017-09-20] MEDS ORDERED: traZODone 50 MG Tablet PO PRN (19:58)
[2017-09-20] MEDS ORDERED: Acetaminophen 325 MG Tablet PO PRN (19:58)
[2017-09-20] MEDS ORDERED: Aluminum/Magnesium/Simethacone Susp 30 ML UDC PO PRN (19:58)
[2017-09-20] MEDS: Senna/Docusate Sodium 8.6/50 MG Tablet PO SCH (21:05)
[2017-09-21] MEDS: Senna/Docusate Sodium 8.6/50 MG Tablet PO SCH ×2 (09:26→20:46)
[2017-09-21 09:57] LABS: Anion Gap 6 meq/L (5-15); Blood Urea Nitrogen 12 mg/dL (7-18); Calcium 9.5 mg/dL (8.5-10.1); Carbon Dioxide 31.3 meq/L (21.0-32.0); Chloride 102 meq/L (98-107); Glomerular Filtration Rate Greater Than 89 mL/min (>89); Glucose,Random 88 mg/dL (74-106); Potassium 3.8 meq/L (3.5-5.1); Sodium 139 meq/L (136-145)
[2017-09-21 09:59] LABS: Cholesterol 183 mg/dL (120-200); Triglycerides 101 mg/dL (42-150)
[2017-09-21 10:03] LABS: Chol/HDL Ratio 4.74 Ratio; HDL Cholesterol 38.6 mg/dL (40.0-60.0); LDL Cholesterol,Calculated 124 mg/dL (0-99)
[2017-09-21 16:31] LABS: Hemoglobin A1c 4.7 % (4.3-6.0)
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
[2017-09-21] MEDS: buPROPion 100 MG ER 12 HR Tablet PO SCH (20:45)
[2017-09-21] MEDS ORDERED: Zolpidem Tartrate 5 MG Tablet PO PRN (21:00)
[2017-09-22] MEDS: buPROPion 100 MG ER 12 HR Tablet PO SCH ×2 (09:20→21:34)
[2017-09-22] MEDS: Senna/Docusate Sodium 8.6/50 MG Tablet PO SCH ×2 (09:22→21:34)
--- NOTE | 2017-09-22 19:08 | P.PNPSY ---
Subjective Remarks: Patient seen for follow-up, chart reviewed. Discussion with nursing staff reported that the patient patient slept, continues for about his finances, denying any suicide ideations and compliant with treatment. Patient was found sitting hospital bed noted become cooperative and tearful at times during interview. Patient continues to be noted to be very dysphoric when speaking about his current psychosocial stressors. Patient states that he has some difficulty sleeping last evening but will request medications to assist this evening if needed. Patient states having spoken to her mother which went well. Patient reports his mood today as being ""pretty good" continues to be worried about his work and states that he is feeling less depressed. 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 Review of Systems All other systems reviewed negative except as stated in HPI Mental Status Examination Appearance: Appropriate Consciousness: Alert Orientation: Person, Place, Date/Time Motor Activity: Normal gait Speech: Unremarkable Language: Adequate Fund of Knowledge: Inadequate Attention and Concentration: Adequate Memory: Unremarkable Mood: Sad Affect: Sad, Other (Tearful) Thought Process & Associations: Intact, Linear Thought Content: Appropriate Hallucination Type: None Delusion Type: None Suicidal Ideation: Yes (Denies today) Suicidal Plan: No Suicidal Intention: No Homicidal Ideation: No Homicidal Plan: No Homicidal Intention: No Insight: Fair Judgment: Impulsive Assessment and Plan - Assessment (1) Adjustment disorder with depressed mood Code(s): F43.21 - Adjustment disorder with depressed mood Status: Acute - Plan Plan: Patient this time continues to be noted to be tearful and dysphoric but states that his mood is improving is feeling less depressed and continues to deny any suicide ideations. We will increase bupropion SR to 150 mg p.o. twice daily for depression. We will continue to monitor mood and behavior. Discharge planning a progress. Justification for Continued Inpatient Stay: At risk for further decompensation if at lower level of care.
[2017-09-23] MEDS: buPROPion 150 MG 12 HR Tablet PO SCH ×2 (09:57→21:26)
[2017-09-23] MEDS: Senna/Docusate Sodium 8.6/50 MG Tablet PO SCH ×2 (09:58→21:28)
--- NOTE | 2017-09-23 19:52 | P.PNPSY ---
Subjective Remarks: Reviewed electronic medical records and discussed case with staff. Follow-up was conducted in patient's room. He was found sitting on his bed. He is alert and oriented. He reports that he has been sleeping and eating better. He states that his moods been "a little better". He also relates that he has been speaking to his acts over the phone to make sure that she is okay. Nurse reports he still remains a little seclusive to his room. Mental Status Examination Appearance: Appropriate Consciousness: Alert Orientation: Person, Place, Date/Time Motor Activity: Normal gait Speech: Unremarkable Language: Adequate Fund of Knowledge: Inadequate Attention and Concentration: Adequate Memory: Unremarkable Mood: Sad Affect: Sad, Other (Tearful) Thought Process & Associations: Intact, Linear Thought Content: Appropriate Hallucination Type: None Delusion Type: None Suicidal Ideation: Yes (Denies today) Suicidal Plan: No Suicidal Intention: No Homicidal Ideation: No Homicidal Plan: No Homicidal Intention: No Insight: Fair Judgment: Impulsive Assessment and Plan - Assessment (1) Adjustment disorder with depressed mood Code(s): F43.21 - Adjustment disorder with depressed mood Status: Acute - Plan Plan: Patient will be reevaluated Monday by the attending psychiatrist. Continue with current treatment plan. Justification for Continued Inpatient Stay: Moving this patient to a less restrictive environment would likely result in decompensation.
[2017-09-24] MEDS: buPROPion 150 MG 12 HR Tablet PO SCH ×2 (11:09→20:44)
[2017-09-24] MEDS: Senna/Docusate Sodium 8.6/50 MG Tablet PO SCH ×3 (11:09→20:50)
--- NOTE | 2017-09-24 13:49 | P.PNPSY ---
Subjective Remarks: Reviewed electronic medical records and discussed case with staff. Follow-up was conducted in patient's room. Patient found sitting on the bed awake, alert , and oriented 4. States that he slept well last night and his appetite is been good. He seems to have some improvement in his affect which is also reported by his nurse. He attended the group therapy session reporting that he is hoping to learn some additional coping skills. He is hopeful for discharge tomorrow. Mental Status Examination Appearance: Appropriate Consciousness: Alert Orientation: Person, Place, Date/Time Motor Activity: Normal gait Speech: Unremarkable Language: Adequate Fund of Knowledge: Inadequate Attention and Concentration: Adequate Memory: Unremarkable Mood: Sad Affect: Sad, Other (Tearful) Thought Process & Associations: Intact, Linear Thought Content: Appropriate Hallucination Type: None Delusion Type: None Suicidal Ideation: Yes (Denies today) Suicidal Plan: No Suicidal Intention: No Homicidal Ideation: No Homicidal Plan: No Homicidal Intention: No Insight: Fair Judgment: Impulsive Assessment and Plan - Assessment (1) Adjustment disorder with depressed mood Code(s): F43.21 - Adjustment disorder with depressed mood Status: Acute - Plan Plan: Patient will be reevaluated tomorrow by the attending psychiatrist. Continue with current treatment plan. Hopeful for discharge tomorrow. Justification for Continued Inpatient Stay: Moving this patient to a less restrictive environment would likely result in decompensation.
[2017-09-25] MEDS: Senna/Docusate Sodium 8.6/50 MG Tablet PO SCH (09:04)
[2017-09-25] MEDS: buPROPion 150 MG 12 HR Tablet PO SCH (09:04)
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
== END 2017-09-25 11:45 | disposition home or self-care (01) ==
LOC: H270 11:30 → H260 14:21
PROVIDERS: ADMIT Student in an Organized Health Care Education/Training Program; ATTEND Student in an Organized Health Care Education/Training Program